=== PATIENT | female | born 1970 | race Caucasian/White ===

== ENCOUNTER → 2018-01-16 | Day surgery (SDC) | payer OTHER ==
[~2018-01-16] MED LIST: BUPIVACAINE/EPINEPHRINE 0.5% PF 30 ML VIAL ONE; KETOROLAC TROMETHAMINE 30 MG/ML (IVP) VIAL ONE; LACTATED RINGER'S 1000 ML INJ 1,000 ML ONE; MIDAZOLAM HCL 2 MG/2 ML VIAL ONE; PROPOFOL 500 MG/50 ML BTL IV ONE; SODIUM CHLORIDE 0.9% 20 ML VIAL ONE; ceFAZolin 2 GM PREMIX 50 ML ONE
--- NOTE | 2018-01-16 12:08 | MP ---
cc: Niharika Yuen MD DATE OF OPERATION: 01/16/2018 PREOPERATIVE DIAGNOSIS: Triple negative left breast cancer. POSTOPERATIVE DIAGNOSIS: Triple negative left breast cancer. PROCEDURE PERFORMED: Right subclavian [id number] placement. SURGEON: Niharika Yuen MD ANESTHESIA: TIVA. INDICATIONS: The patient is a 47-year-old female with multifocal triple negative left breast cancer. She will require mastectomy as well as chemotherapy and a strong recommendation for neoadjuvant therapy was made. She now presents for port placement to facilitate treatment. FINDINGS AT THE TIME OF SURGERY: Normal right subclavian anatomy was noted. DETAILS OF PROCEDURE: After informed consent was obtained, and site verification was performed, the patient was brought to the major operating room where she was given IV sedation. She received a single dose of IV Ancef and sequential compression hose were placed. She was placed in the Trendelenburg position and the neck and both chests were prepped and draped in a sterile fashion. The right infraclavicular area was anesthetized with 0.5% Marcaine plain. The right subclavian vein was identified via percutaneous Cook needle cannulation and a J wire advanced via the Seldinger technique into the central circulation where its position was confirmed with fluoroscopy. The wire was withdrawn and sharp and electrocautery dissection was performed around the wire until a subcutaneous pocket for the port reservoir had been created at the level of the pectoral muscle. The catheter was measured out at 25 cm and cut off. The reservoir was flushed with heparinized saline and a peel-away sheath and introducer were then advanced under fluoroscopic vision over the wire. Good position of the introducer was noted and the introducer and wire were removed. The catheter advanced easily through the peel-away sheath, which was removed, and fluoroscopy demonstrated good position of the catheter tip at 17 cm. The catheter was cut off at this point and secured to the port, which was noted to flush and aspirate easily. The reservoir was placed in the subcutaneous pocket and secured to the chest wall with two interrupted 2-0 Prolene sutures. Good hemostasis was noted, and the wound was closed using interrupted 3-0 Vicryl subcutaneous sutures and a 4-0 Monocryl subcuticular suture. Steri-Strips and a sterile dressing were applied. Chest x-ray is pending at the time of this dictation. MD MENDEZ Diggs/DALJIT , 11:37 AM , 12:06 PM
== END | disposition home or self-care (01) ==
LOC: ESDC 07:48
PROVIDERS: ATTEND Surgery
DX: Z45.2 Encounter for adjustment and management of vascular access device (principal); C50.912 Malignant neoplasm of unspecified site of left female breast
CPT/HCPCS: 00532; 36561; 76000; C1788; J0690; J1885; J2250; J3010; J7120